=== PATIENT | female | born 1930 | race Caucasian/White ===

== ENCOUNTER 2016-11-11 13:43 | Emergency (ER) | payer OTHER ==
[~2016-11-11] VITALS: Ht 162.6 cm; Wt 66.7 kg
[~2016-11-11 13:43] MED LIST: ACETAMINOPHEN/H1 TA6 PO; AMOXICOT500 MG PO; ANTIVERT12.5 MG PO; BACLOFEN20 MG PO; CEL100 PO; CEL20 PO; CELEXA20 MG PO; DITROPAN XL5 MG; DOCUSATE SODIU100 M1 PO; EVI60 PO; EVISTA60 MG PO; FIO3 PO; GLU500 PO; LEVOTHYROXIN0.075 M2 PO; METFORMIN HCL500 MG PO; METOPROLOL SUCC25 M1; METOPROLOL SUCC25 M1 PO; OMEPRAZOLE DR20 M1; OMEPRAZOLE DR20 M1 PO; OXYBUTYNIN CHLOR5 MG PO; PRILOSEC20 MG PO; PRO40 PO; REG5 PO; REGLAN5 M1 PO; SIMVASTATIN10 M1; SOM350 PO; STOOL SOFTENER100 MG PO; SYN75 PO; TOP50 PO; ZOC20 PO; ZOCOR80 MG PO
[2016-11-11 14:39] LABS: BASOPHIL % 0.4 % (0-2); PLATELET COUNT 147 x10^3mcL (130-400); RED CELL DISTRIBUTION WIDTH 14.3 % (11.5-14.5)
[2016-11-11 14:44] LABS: CALCIUM 8.5 mg/dL (8.5-10.1); CARBON DIOXIDE 28.9 mmol/L (21-32); CHLORIDE SERUM 108 mmol/L (98-107); CREATININE SERUM 0.6 mg/dL (0.6-1.0); GLUCOSE SERUM 96 mg/dL (74-106); POTASSIUM SERUM 3.7 mmol/L (3.5-5.1); SODIUM SERUM 143 mmol/L (136-145)
[2016-11-11 14:48] LABS: ALBUMIN 3.4 g/dL (3.4-5.0); ALKALINE PHOSPHATASE 80 U/L (46-116); ALT/SGPT 17 U/L (14-59); AST/SGOT 15 U/L (15-37); BILIRUBIN TOTAL 0.6 mg/dL (0.20-1.00); CHOLESTEROL 192 mg/dL (<200); HDL CHOLESTEROL 44 mg/dL (40-60); PHOSPHOROUS 3.5 mg/dL (2.5-4.9); TOTAL PROTEIN, SERUM 6.4 g/dL (6.4-8.2); URIC ACID 3.9 mg/dL (2.6-6.0)
[2016-11-11 15:57] VITALS: BP 126/59
== END 2016-11-11 15:57 | disposition home or self-care (01) ==
LOC: ED 13:43
PROVIDERS: Emergency Medicine
DX: H81.10 Benign paroxysmal vertigo, unspecified ear (principal); G44.209 Tension-type headache, unspecified, not intractable; I10 Essential (primary) hypertension; E11.9 Type 2 diabetes mellitus without complications; Z79.899 Other long term (current) drug therapy
CPT/HCPCS: 83880; J1885; J2765

== ENCOUNTER 2017-04-13 03:52 | Inpatient (IN) | payer OTHER ==
[~2017-04-13] VITALS: Ht 160 cm; Wt 68.1 kg
[2017-04-13] MEDS ORDERED: PROTONIX40 MG PO (04:10)
[2017-04-13] MEDS ORDERED: ALENDRONATE SOD70 M2 PO (04:10)
[2017-04-13] MEDS ORDERED: BAYER ASPIRIN R81 MG PO (04:11)
[2017-04-13] MEDS ORDERED: ZANTAC 150150 MG PO (04:11)
[2017-04-13] MEDS ORDERED: CYCLOBENZAPRINE5 MG PO (04:12)
[2017-04-13 04:37] LABS: BASOPHIL % 0.8 % (0-2); PLATELET COUNT 150 x10^3mcL (130-400)
[2017-04-13 04:50] LABS: RED CELL DISTRIBUTION WIDTH 14.7 % (11.5-14.5)
[2017-04-13 05:29] LABS: CALCIUM 8.6 mg/dL (8.5-10.1); CHLORIDE SERUM 108 mmol/L (98-107); CREATININE SERUM 0.6 mg/dL (0.6-1.0); GLUCOSE SERUM 105 mg/dL (74-106); SODIUM SERUM 142 mmol/L (136-145)
[2017-04-13 05:33] LABS: ALBUMIN 3.3 g/dL (3.4-5.0); ALKALINE PHOSPHATASE 80 U/L (46-116); ALT/SGPT 16 U/L (14-59); AST/SGOT 13 U/L (15-37); BILIRUBIN TOTAL 0.29 mg/dL (0.20-1.00); LIPASE 234 IU/L (73-393); TOTAL PROTEIN, SERUM 6.6 g/dL (6.4-8.2)
[2017-04-13 06:53] VITALS: BP 147/59
[2017-04-13 07:03] LABS: MAGNESIUM 2.1 mg/dL (1.8-2.4); PHOSPHOROUS 3.6 mg/dL (2.5-4.9)
[2017-04-13 07:06] LABS: CHOLESTEROL/HDL RATIO 5.9
[2017-04-13 07:16] LABS: FREE T4 0.89 ng/dL (0.76-1.46); FREE THYROXINE INDEX 2.2 ug/dL (1.4-4.5); T4(THYROXINE) 6.4 ug/dL (4.7-13.3)
[2017-04-13 07:19] LABS: microscopic required? NO
[2017-04-13 07:50] LABS: urine erythrocyte NEGATIVE (NEGATIVE)
[2017-04-13 09:47] VITALS: BP 129/67
[2017-04-13 11:32] LABS: T3 TOTAL 1.05 ng/mL
[2017-04-13 13:50] VITALS: BP 117/55
[2017-04-13 19:13] VITALS: BP 144/67
[2017-04-13 21:45] VITALS: BP 123/62
[2017-04-14 05:32] VITALS: BP 147/70
[2017-04-14 06:01] LABS: BASOPHIL % 0.7 % (0-2); PLATELET COUNT 146 x10^3mcL (130-400)
[2017-04-14 06:12] LABS: CALCIUM 8.2 mg/dL (8.5-10.1); CARBON DIOXIDE 27.3 mmol/L (21-32); CHLORIDE SERUM 112 mmol/L (98-107); CREATININE SERUM 0.6 mg/dL (0.6-1.0); GLUCOSE SERUM 89 mg/dL (74-106); POTASSIUM SERUM 3.9 mmol/L (3.5-5.1); SODIUM SERUM 143 mmol/L (136-145)
[2017-04-14 11:01] VITALS: BP 121/67
[2017-04-14 13:51] VITALS: BP 122/71
[2017-04-14 17:39] VITALS: BP 132/63
[2017-04-14 22:22] VITALS: BP 113/56
[2017-04-15 06:50] LABS: BASOPHIL % 0.7 % (0-2); PLATELET COUNT 146 x10^3mcL (130-400)
[2017-04-15 09:41] VITALS: BP 126/49
[2017-04-15] MEDS ORDERED: TOP50 PO (10:47)
[2017-04-15] MEDS ORDERED: SYN75 PO (10:48)
[2017-04-15] MEDS ORDERED: FOS10 PO (10:49)
[2017-04-15] MEDS ORDERED: MECLIZINE HYDRO25 M1 PO (10:49)
[2017-04-15] MEDS ORDERED: LEVAQUIN750 MG PO (10:52)
[2017-04-15] MEDS ORDERED: LAC PO (10:53)
[2017-04-15 11:31] VITALS: BP 126/49
[2017-04-15] MEDS ORDERED: ACCU CHEK SAFE MC (13:41)
[2017-04-15] MEDS ORDERED: BG FS (13:41)
== END 2017-04-15 14:00 | disposition home or self-care (01) | DRG 206 ==
LOC: ED 03:52 → DU 05:22
PROVIDERS: Emergency Medicine; ADMIT Family Medicine
DX: J98.11 Atelectasis (principal); E44.0 Moderate protein-calorie malnutrition; E11.65 Type 2 diabetes mellitus with hyperglycemia; I10 Essential (primary) hypertension; E78.5 Hyperlipidemia, unspecified; K57.90 Diverticulosis of intestine, part unspecified, without perforation or abscess without bleeding; K44.9 Diaphragmatic hernia without obstruction or gangrene; M81.0 Age-related osteoporosis without current pathological fracture; Z68.26 Body mass index [BMI] 26.0-26.9, adult
CPT/HCPCS: 83880; 84439; 94150; 97110-GP; 97116-GP; 97530-GP; J1956; J3490; J7030; J8597; Q0092

== ENCOUNTER → 2017-05-16 | Outpatient (CLI) | payer OTHER ==
[~2017-05-16] MED LIST changes: +ACCU CHEK SAFE MC; +ALENDRONATE SOD70 M2 PO; +BAYER ASPIRIN R81 MG PO; +BG FS; +CYCLOBENZAPRINE5 MG PO; +FOS10 PO; +LAC PO; +LEVAQUIN750 MG PO; +MECLIZINE HYDRO25 M1 PO; +PROTONIX40 MG PO; +ZANTAC 150150 MG PO
== END | disposition home or self-care (01) ==
LOC: RD 13:22
DX: M25.512 Pain in left shoulder (principal)

== ENCOUNTER 2017-10-21 18:03 | Emergency (ER) | payer OTHER ==
[~2017-10-21] VITALS: Ht 162.6 cm; Wt 65.8 kg
[2017-10-21 18:10] VITALS: Ht 162.6 cm; Wt 65.8 kg
[2017-10-21 22:20] VITALS: BP 145/67
== END 2017-10-21 22:20 | disposition home or self-care (01) ==
LOC: ED 18:03
DX: S13.4XXA Sprain of ligaments of cervical spine, initial encounter (principal); S50.812A Abrasion of left forearm, initial encounter; S80.812A Abrasion, left lower leg, initial encounter; S00.212A Abrasion of left eyelid and periocular area, initial encounter; M54.5 Low back pain; M25.512 Pain in left shoulder; I10 Essential (primary) hypertension; E11.9 Type 2 diabetes mellitus without complications; E07.9 Disorder of thyroid, unspecified; M81.0 Age-related osteoporosis without current pathological fracture; W18.30XA Fall on same level, unspecified, initial encounter; Y93.89 Activity, other specified; Y99.8 Other external cause status; Y92.89 Other specified places as the place of occurrence of the external cause
CPT/HCPCS: 90715

== ENCOUNTER → 2017-10-30 | Outpatient (CLI) | payer OTHER | END | disposition home or self-care (01) | LOC: RD 16:31 | DX: M25.512 Pain in left shoulder (principal); W19.XXXA Unspecified fall, initial encounter ==

== ENCOUNTER 2018-01-16 06:23 | Day surgery (SDC) | payer OTHER ==
[~2018-01-16] VITALS: Ht 160 cm; Wt 68.0 kg
[2018-01-16 07:06] VITALS: BP 143/81
[2018-01-16 10:53] VITALS: BP 129/59
== END 2018-01-16 10:30 | disposition home or self-care (01) ==
LOC: GI 06:23 → OR 07:30 → GI 10:30
PROVIDERS: Internal Medicine Gastroenterology
PROC: 0D758ZZ Dilation of Esophagus, Via Natural or Artificial Opening Endoscopic (ICD-10-PCS; principal; 2018-01-16 07:30)
DX: K22.2 Esophageal obstruction (principal); R13.10 Dysphagia, unspecified; K21.9 Gastro-esophageal reflux disease without esophagitis; I10 Essential (primary) hypertension; K44.9 Diaphragmatic hernia without obstruction or gangrene
CPT/HCPCS: 43235; J1200; J1610; J2250; J2310; J3010; J3490

== ENCOUNTER 2018-04-02 12:35 | Emergency (ER) | payer OTHER ==
[~2018-04-02] VITALS: Ht 160 cm; Wt 66.7 kg
[2018-04-02 12:39] VITALS: Ht 160 cm; Wt 66.7 kg
[2018-04-02 13:27] VITALS: BP 118/59
[2018-04-02 14:01] LABS: UA SPECIFIC GRAVITY 1.015 (1.005-1.035); microscopic required? YES; urine erythrocyte NEGATIVE (NEGATIVE)
== END 2018-04-02 13:40 | disposition short-term general hospital (02) ==
LOC: ED 12:35
PROVIDERS: Emergency Medicine
DX: I63.9 Cerebral infarction, unspecified (principal); R41.82 Altered mental status, unspecified; E11.9 Type 2 diabetes mellitus without complications; I95.9 Hypotension, unspecified
CPT/HCPCS: J7030; Q0092

== ENCOUNTER 2018-04-27 14:15 | Emergency (ER) | payer OTHER ==
[~2018-04-27] VITALS: Ht 152.4 cm; Wt 68.0 kg
[2018-04-27 14:27] VITALS: Ht 152.4 cm; Wt 68.0 kg
[2018-04-27 17:21] VITALS: BP 130/66
== END 2018-04-27 17:33 | disposition home or self-care (01) ==
LOC: ED 14:15
DX: S29.8XXA Other specified injuries of thorax, initial encounter (principal); I10 Essential (primary) hypertension; E11.9 Type 2 diabetes mellitus without complications; E78.00 Pure hypercholesterolemia, unspecified; M81.0 Age-related osteoporosis without current pathological fracture; W18.30XA Fall on same level, unspecified, initial encounter; Y93.89 Activity, other specified; Y92.89 Other specified places as the place of occurrence of the external cause; Y99.8 Other external cause status
CPT/HCPCS: 82962

== ENCOUNTER 2018-10-06 06:20 | Day surgery (SDC) | payer OTHER ==
[~2018-10-06] VITALS: Ht 160 cm; Wt 67.6 kg
[2018-10-06 06:37] VITALS: BP 130/89
[2018-10-06 11:28] VITALS: BP 130/71
== END 2018-10-06 10:55 | disposition home or self-care (01) ==
LOC: DS 06:20 → OR 07:30 → GI 07:30 → DS 10:55
PROVIDERS: Internal Medicine Gastroenterology
PROC: 0D758ZZ Dilation of Esophagus, Via Natural or Artificial Opening Endoscopic (ICD-10-PCS; principal; 2018-10-06 07:30)
DX: K21.0 Gastro-esophageal reflux disease with esophagitis (principal); K44.9 Diaphragmatic hernia without obstruction or gangrene; K22.2 Esophageal obstruction; E11.9 Type 2 diabetes mellitus without complications; E78.00 Pure hypercholesterolemia, unspecified; M81.0 Age-related osteoporosis without current pathological fracture; M19.90 Unspecified osteoarthritis, unspecified site; E07.9 Disorder of thyroid, unspecified; Z79.82 Long term (current) use of aspirin; Z79.84 Long term (current) use of oral hypoglycemic drugs; Z68.26 Body mass index [BMI] 26.0-26.9, adult
CPT/HCPCS: 43235; J1200; J1610; J2250; J2310; J3010; J3490